=== PATIENT | female | born 1955 | race Caucasian/White ===

== ENCOUNTER 2021-01-25 08:42 | Outpatient (CLI) | payer BC, SELFPAY ==
--- NOTE | 2021-01-25 08:53 | FL_ITS ---
WS: [id number] ESOPHAGRAM WITH FLUOROSCOPY HISTORY: DYSPHAGIA, PHARYNGOESOPHAGEAL dysmotility. COMPARISON: None available. FLUOROSCOPY TIME: 1.4 minutes. Esophagus and swallowing function: Patient swallowed the barium mixture without difficulty. No strict ures or mucosal abnormalities are identified. Barium tablet was swallowed without difficulty. Gastroesophageal reflux: None. Hiatal hernia: Small reducible hiatal hernia noted several times during the examination. FL/FL barium swallow [id number] IMPRESSION: 1. No high grade esophageal strictures. 2. Small reducible hiatal hernia.
== END 2021-01-25 08:43 | disposition home or self-care (01) ==
LOC: RADWPI 08:47
PROVIDERS: Visit Provider Family Medicine
DX: R13.14 Dysphagia, pharyngoesophageal phase (principal); K44.9 Diaphragmatic hernia without obstruction or gangrene
CPT/HCPCS: 74220

== ENCOUNTER 2021-02-16 09:50 | Outpatient (CLI) | payer BC, SELFPAY ==
--- NOTE | 2021-02-16 09:55 | MM_ITS ---
WS: [id number] BILATERAL DIGITAL SCREENING MAMMOGRAPHY WITH CAD CLINICAL INFORMATION: SCREENING HISTORY: Screening mammogram. No current complaints. COMPARISON: TECHNIQUE: Bilateral CC and MLO views. FINDINGS: Right breast slightly smaller compared to the left unchanged. The breasts are composed of heterogeneous fibroglandular density tissue, which can limit the detectio n of small underlying mass lesions. No suspicious mass, asymmetry, calcifications, or architectural d istortion. No evidence of malignancy. Biopsy clip left breast. MM/[id number] IMPRESSION: BI-RADS: 2-Benign FOLLOW UP: 1 Year Follow-up Recommend return to annual screening mammography.
== END 2021-02-16 09:51 | disposition home or self-care (01) ==
LOC: RADSHAW 09:53
PROVIDERS: PCP Family Medicine; Visit Provider Family Medicine
DX: Z12.31 Encounter for screening mammogram for malignant neoplasm of breast (principal)
CPT/HCPCS: 77067

== ENCOUNTER 2023-02-17 12:27 | Outpatient (CLI) | payer OTHER, SELFPAY ==
--- NOTE | 2023-02-17 13:00 | MM_ITS ---
WS: [id number] VIEWS: MLO and CC views both breasts. 3D digital tomosynthesis is also included in this exam. Comparison made with prior exam of 03/28/2009, 02/06/2015, 02/18/2018, 02/20/2019, 02/16/2021,. Findings: There was no sign of mass, architectural distortion or suspicious calcification in either breast. Th ere are scattered areas of fibroglandular density MM/[place] [id number] Impression: BI-RADS: 2-Benign finding. FOLLOW-UP: 1 Year Follow-up This mammogram was also analyzed by the Computer Aided Detection System [employer]ating [employer].
== END 2023-02-17 12:28 | disposition home or self-care (01) ==
LOC: RAD 12:34 → MOBLMAM 12:59
PROVIDERS: PCP Family Medicine; Visit Provider Family Medicine
DX: Z12.31 Encounter for screening mammogram for malignant neoplasm of breast (principal)
CPT/HCPCS: 77063; 77067

== ENCOUNTER 2024-02-21 12:38 | Outpatient (CLI) | payer MEDICARE, SELFPAY ==
--- NOTE | 2024-02-21 12:44 | MM_ITS ---
WS: [id number] BILATERAL 3D TOMOSYNTHESIS DIGITAL SCREENING MAMMOGRAPHY WITH CAD CLINICAL INFORMATION: SCREENING HISTORY: Screening mammogram. No current complaints. COMPARISON: 2022 TECHNIQUE: Bilateral CC and MLO views. FINDINGS: The breasts are composed of heterogeneous fibroglandular density tissue, which can limit the detectio n of small underlying mass lesions. No suspicious mass, asymmetry, calcifications, or architectural d istortion. No evidence of malignancy. Biopsy clip LEFT breast. MM/[id number] IMPRESSION: BI-RADS: 2-Benign FOLLOW UP: 1 Year Follow-up Recommend return to annual screening mammography.
--- NOTE | 2024-02-21 12:44 | XR_ITS ---
WS: [id number] DEXA (DUAL ENERGY X-RAY ABSORPTIOMETRY) Bone mineral density was performed using a [employer] machine. HISTORY: POSTMENOPAUSAL COMPARISON: None available. Lumbar spine BMD (L1-L4): 1.134 g/cm2 T score: -0.4 Z score: 0.4 Total hip BMD: Left: 1.070 g/cm2. T score: 0.5 Z score: 1.2 Right: 1.056 g/cm2. T score: 0.4 Z score: 1.1 10 year probability of a major osteoporotic fracture is 6.4%. XR/XR DEXA axial skeleton* [id number] IMPRESSION: NORMAL BONE MINERAL DENSITY based upon the WHO classification for females.
== END 2024-02-21 12:39 | disposition home or self-care (01) ==
LOC: RAD 12:39
PROVIDERS: PCP Family Medicine; Visit Provider Family Medicine
DX: Z78.0 Asymptomatic menopausal state (principal); Z12.31 Encounter for screening mammogram for malignant neoplasm of breast; R92.333 Mammographic heterogeneous density, bilateral breasts; R92.323 Mammographic fibroglandular density, bilateral breasts
CPT/HCPCS: 77063; 77067; 77080

== ENCOUNTER 2024-09-25 23:17 | Observation (INO) | payer MEDICARE, SELFPAY ==
[2024-09-25 23:19] VITALS: BP 96/50; PULSE 72; RESP 18; TEMP 36.4; O2SAT 95; BMI 27.5
[2024-09-26] VITALS (9 sets, daily range): BP systolic 102–121; BP diastolic 57–88; PULSE 58–81; RESP 12–16; TEMP 36.4–36.9; O2SAT 88–99
[2024-09-26 01:01] LABS: Basophils % 0.3 %; Eosinophils % 0.3 %; Hematocrit 38.3 % (36-47); Lymphocytes % 7.6 %; Mean Corpuscular HGB Conc 30.8 g/dL (30-55); Mean Corpuscular Hemoglobin 24.4 pg (27-33); Mean Corpuscular Volume 79.1 fl (85-98); Mean Platelet Volume 8.9 fL (7.4-10.4); Monocytes # 0.6 10^3/uL (0.2-0.9); Monocytes % 4.3 %; Neutrophils # 11.96 10^3/uL (1.8-7.7); Neutrophils % 87.2 %; Nucleated Red Blood Cells % 0 %; Platelet Count 501 10^3/cmm (157-399); Red Blood Count 4.84 10^6/uL (3.85-5.65); White Blood Count 13.71 10^3/uL (3.29-11.43)
[2024-09-26 01:18] LABS: Alanine Aminotransferase < 5 U/L (0-33); Albumin Level 3.6 g/dL (3.5-5.2); Alkaline Phosphatase 154 U/L (35-105); Anion Gap 18.4 (5-19); Aspartate Amino Transferase 8 U/L (0-32); Blood Urea Nitrogen 13 mg/dL (8-23); C Reactive Protein 162.7 mg/L (0.0-4.9); Calcium 9.2 mg/dL (8.5-10.5); Carbon Dioxide 24 mmol/L (22-29); Chloride 98 mmol/L (98-107); Creatinine Clr Calc Pharmacy 43.8167; Globulin 4.7 g/dL (1.3-4.6); Glomerular Filtration Rate 37.5 mL/min (90-130); Glucose 148 mg/dL (65-115); Lipase 17 U/L (13-60); Osmolality Calculated 285 mOsm/kg (285-295); Potassium 4.4 mmol/L (3.5-5.1); Sodium 136 mmol/L (136-145); Total Bilirubin 0.3 mg/dL (0.15-1.2); Total Protein 8.3 g/dL (6.6-8.7)
[2024-09-26 01:20] LABS: Lactic Sepsis W/Reflex 0.9 mmol/L (0.5-2.2)
--- NOTE | 2024-09-26 01:29 | CTR_ITS ---
PROCEDURE INFORMATION: Exam: CT Abdomen And Pelvis Without Contrast Exam date and time: 09/26/2024 1:41 AM Age: 69 years old Clinical indication: Abdominal pain; Periumbilical TECHNIQUE: Imaging protocol: Computed tomography of the abdomen and pelvis without contrast. Radiation optimization: All CT scans at this facility use at least one of these dose optimization techniques: automated exposure control; mA and/or kV adjustment per patient size (includes targeted exams where dose is matched to clinical indication); or iterative reconstruction. COMPARISON: No relevant prior studies available. RADIATION DOSE METRICS: Total DLP (mGy-cm): 659.03 FINDINGS: Liver: 2.3 cm central hepatic cyst. Gallbladder and biliary ducts: Normal. No calcified stones. No ductal dilation. Pancreas: Normal. No ductal dilation. Spleen: Normal. No splenomegaly. Adrenal glands: Normal. No mass. Kidneys and ureters: Normal. No hydronephrosis. Stomach and bowel: Multiple mildly dilated loops of fluid-filled mid and distal small bowel are seen. There is transition to decompressed distal small bowel in the right lower quadrant. Circumferential wall thickening is seen in the distal ileum. Nonspecific mesenteric fat stranding in the right lower quadrant suggests an acute inflammatory process, but a drainable fluid collection is not identified. Appendix: Nonspecific appendiceal thickening is seen up to 10 mm. Intraperitoneal space: Trace ascites. Vasculature: Aortoiliac atherosclerotic disease is seen without evidence of aneurysm. Lymph nodes: Unremarkable. No enlarged lymph nodes. Urinary bladder: Unremarkable as visualized. Reproductive: Unremarkable as visualized. Bones/joints: Diffuse patchy hypoattenuation throughout the visualized vertebral segments could indicate an infiltrative marrow process. 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 Soft tissues: Unremarkable. CT/CT abdomen pelvis con [id number] IMPRESSION: 1. Distal small bowel obstruction. Exact etiology is uncertain, but a nonspecific inflammatory process appears to be present in the right lower quadrant including terminal ileal thickening. Inflammatory bowel disease is a consideration. The appendix appears somewhat thickened and mildly dilated measuring up to 10 mm. Although acute appendicitis is not entirely excluded, reactive thickening is favored. 2. Diffuse patchy hypoattenuation throughout the visualized vertebral segments could indicate an infiltrative marrow process. Correlation with appropriate laboratory studies is recommended.
--- NOTE | 2024-09-26 02:04 | ED_ITS ---
HPI - Abdominal Pain 2 General: Chief Complaint: Abdominal Pain Stated Complaint: n/v/d severe abd pain Time Seen by Provider: 09/26/24 02:03 History of Present Illness: 69-year-old female who presents emergenc y room with abdominal pain. She says she has been having worsening pain for at least a week now. Has become much worse today. She feels bloating in her abdomen. Pain is worse in her lower abdomen on exam is worse in the right lower quadrant. Vomiting started overnight. Vomiting and pain became much worse in the last 24 hours. However she has had nausea for almost a week now. No fevers. Only surgical history is a hysterectomy in the past. Related Data Allergies Allergy/AdvReac Type Severity Reaction Status Date / Time Penicillins Allergy ALGY-Rash Verified 09/25/24 23:26 Sulfa (Sulfonamide Allergy ADR-Gastrointestinal Verified 09/25/24 23:26 Antibiotics) Upset Review of Systems 2 Narrative: Constitutional symptoms: Negative except as documented in HPI. Skin symptoms: Negative except as documented in HPI. Eye symptoms: Negative except as documented in HPI. ENMT symptoms: Negative except as documented in HPI. Respiratory symptoms: Negative except as documented in HPI. Cardiovascular symptoms: Negative except as documented in HPI. Gastrointestinal symptoms: Negative except as documented in HPI. Genitourinary symptoms: Negative except as documented in HPI. Musculoskeletal symptoms: Negative except as documented in HPI. Neurologic symptoms: Negative except as documented in HPI. Psychiatric symptoms: Negative except as documented in HPI. Endocrine symptoms: Negative except as documented in HPI. Physical Exam 2 Narrative: EXAM NARRATIVE: General: Alert, no acute distress. Skin: Warm, dry. Head: Normocephalic, atraumatic. Neck: Supple, trachea midline. Eye: Extraocular movements are intact. Ears, nose, mouth and throat: Dry oral mucosa Cardiovascular: Regular, Normal peripheral perfusion. Respiratory: Lungs are clear to auscultation, respirations are non-labored, breath sounds are equal, Symmetrical chest wall expansion. Gastrointestinal: Soft, tenderness in the lower abdomen worse on the right and central abdomen than the left. No distention. No guarding., Non distended Musculoskeletal: Normal ROM, no deformity. Neurological: Alert and oriented, No focal neurological deficit observed. Psychiatric: Cooperative, appropriate mood & affect. Course 2 Vital Signs: Vital signs: Vital Signs Temperature 97.5 F L 09/25/24 23:19 Pulse Rate 72 09/25/24 23:19 Respiratory Rate 18 09/25/24 23:19 Blood Pressure 96/50 09/25/24 23:19 Pulse Oximetry 95 09/25/24 23:19 MDM - Abdominal Pain Medical Decision Making Medical decision making: Differential diagnosis for this patient with right lower quadrant abdominal pain including but not limited to and based on the above HPI, review of systems and physical exam: Ureterolithiasis. Urinary tract infection. Appendicitis. colitis. small bowel obstruction. Crohn's flare. Pancreatitis. Cholelithiasis or cholecystitis. Hepatitis. Diverticulitis. Constipation. ovarian cyst. ovarian torsion Workup: Orders were placed to evaluate differential diagnosis based on the above differential, HPI and exam: Lab Review: Laboratory results were reviewed and interpreted by myself the emergency room physician. Leukocytosis with a white count 13.7. BUN and creatinine are slightly elevated at 13 and 1.4. Lipase is negative. Liver enzymes are normal. CT of the abdomen and pelvis: Distal small bowel obstruction. Unknown etiology. Does seem to be some sort of inflammatory process in the right lower quadrant and also some increased size of the appendix. Cannot rule out acute appendicitis. This was reviewed and interpreted by myself the emergency room physician. I also reviewed the radiology report. I reviewed the patient's medical record Reexamination: Patient continues to have pain in her right lower quadrant. Otherwise she has been stable. No altered mental status. She has had no vomiting since has been here. Consultation: I spoke with Dr. Linder who is on-call for general surgery. He agrees to admission. We are placing an NG tube for small bowel obstruction. I am also placing her on antibiotics to cover for intra-abdominal infection including appendicitis. As I cannot rule this out. Possibly she could have an ileus or obstruction secondary to appendicitis or if this could just be a secondary inflammatory process as stated by the radiologist. Assessment and plan: Small bowel obstruction Possible appendicitis Dehydration ?Normal saline bolus, IV Zofran, IV morphine, IV Cipro and Flagyl (the patient is allergic to penicillins) -I discussed the patient with the hospitalist on-call who is admitting the patient. - Discussed findings and plan with patient. Answered any questions. - All laboratory values were reviewed and interpreted personally by myself, the ER physician - All imaging was reviewed and interpreted personally by myself, the ER physician. - Evaluation and treatment of this problem were appropriate in the emergency setting Lab Data 09/26/24 00:56 09/26/24 00:56 Labs/Radiology: Radiology Impressions Abdomen/Pelvis CT 09/26/24 01:29 IMPRESSION: 1. Distal small bowel obstruction. Exact etiology is uncertain, but a nonspecific inflammatory process appears to be present in the right lower quadrant including terminal ileal thickening. Inflammatory bowel disease is a consideration. The appendix appears somewhat thickened and mildly dilated measuring up to 10 mm. Although acute appendicitis is not entirely excluded, reactive thickening is favored. 2. Diffuse patchy hypoattenuation throughout the visualized vertebral segments could indicate an infiltrative marrow process. Correlation with appropriate laboratory studies is recommended. ADDENDUM: 09/26/24 [id number] THIS REPORT CONTAINS FINDINGS THAT MAY BE CRITICAL TO PATIENT CARE. The findings were verbally communicated via telephone conference at 2:42 AM PRIMING MIXTURE CARRIER on 09/26/2024 with HUY GALEANO. The findings were acknowledged and understood. Laboratory Results WBC 13.71 10^3/uL (3.29-11.43) H 09/26/24 00:56 RBC 4.84 10^6/uL (3.85-5.65) 09/26/24 00:56 Hgb 11.80 g/dL (11.27-16.99) 09/26/24 00:56 Hct 38.3 % (36-47) 09/26/24 00:56 MCV 79.1 fl (85-98) L 09/26/24 00:56 MCH 24.4 pg (27-33) L 09/26/24 00:56 MCHC 30.8 g/dL (30-55) 09/26/24 00:56 RDW 15.0 % (12.1-15.1) 09/26/24 00:56 Plt Count 501 10^3/cmm (157-399) H 09/26/24 00:56 MPV 8.9 fL (7.4-10.4) 09/26/24 00:56 Neut % (Auto) 87.2 % 09/26/24 00:56 Lymph % (Auto) 7.6 % 09/26/24 00:56 [place] % (Auto) 4.3 % 09/26/24 00:56 Eos % (Auto) 0.3 % 09/26/24 00:56 Baso % (Auto) 0.3 % 09/26/24 00:56 Neut # (Auto) 11.96 10^3/uL (1.8-7.7) H 09/26/24 00:56 Lymph # (Auto) 1.0 10^3/uL (0.8-4.8) 09/26/24 00:56 [place] # (Auto) 0.6 10^3/uL (0.2-0.9) 09/26/24 00:56 Eos # (Auto) 0.0 10^3/uL (0.0-0.8) 09/26/24 00:56 Baso # (Auto) 0.0 10^3/uL (0.0-0.1) 09/26/24 00:56 Nucleated RBC % (auto) 0 % 09/26/24 00:56 Nucleated RBCs # 0.0 /100WBC 09/26/24 00:56 Sodium 136 mmol/L (136-145) 09/26/24 00:56 Potassium 4.4 mmol/L (3.5-5.1) 09/26/24 00:56 Chloride 98 mmol/L (98-107) 09/26/24 00:56 Carbon Dioxide 24 mmol/L (22-29) 09/26/24 00:56 Anion Gap 18.4 (5-19) 09/26/24 00:56 BUN 13 mg/dL (8-23) 09/26/24 00:56 Creatinine 1.4 mg/dL (0.5-0.9) H 09/26/24 00:56 GFR Calculation 37.5 mL/min (90-130) L 09/26/24 00:56 Glucose 148 mg/dL (65-115) H 09/26/24 00:56 Calculated Osmolality 285 mOsm/kg (285-295) 09/26/24 00:56 Lactic Acid 0.9 mmol/L (0.5-2.2) 09/26/24 00:56 Calcium 9.2 mg/dL (8.5-10.5) 09/26/24 00:56 Total Bilirubin 0.3 mg/dL (0.15-1.2) 09/26/24 00:56 AST 8 U/L (0-32) 09/26/24 00:56 ALT < 5 U/L (0-33) 09/26/24 00:56 Alkaline Phosphatase 154 U/L (35-105) H 09/26/24 00:56 C-Reactive Protein 162.7 mg/L (0.0-4.9) H 09/26/24 00:56 Total Protein 8.3 g/dL (6.6-8.7) 09/26/24 00:56 Albumin 3.6 g/dL (3.5-5.2) 09/26/24 00:56 Globulin 4.7 g/dL (1.3-4.6) H 09/26/24 00:56 Lipase 17 U/L (13-60) 09/26/24 00:56 All radiology interpretation(s) finalized by discharge Discharge Plan Discharge Patient Disposition: Admitted As Inpatient Clinical Impression: Small bowel obstruction, Dehydration Condition: Stable Coding Level of Care Code ED [employer]eng[employer]ving [employer]inter for [employer]
[2024-09-26] MEDS: sodium chloride 0.9% 1,000 ML 999 ML IV (02:50)
[2024-09-26] MEDS: ondansetron 2 mg/ML SDV 2 mL 4 MG IVP (02:50)
[2024-09-26] MEDS: morphine 4 mg/mL SDV 1 mL IVP (02:51)
[2024-09-26] MEDS: metroNIDAZOLE IV 500 MG/100 ML PREMIX 100 MG IV (03:05)
[2024-09-26] MEDS: ciprofloxacin 400 MG/200 ML PREMIX 200 MG IV (03:05)
--- NOTE | 2024-09-26 04:24 | XRR_ITS ---
PROCEDURE INFORMATION: Exam: XR Chest Exam date and time: 09/26/2024 4:23 AM Age: 69 years old Clinical indication: Device placement; Ng tube; Additional info: Ng tube placement TECHNIQUE: Imaging protocol: Radiologic exam of the chest. Views: 1 view. COMPARISON: CT abdomen pelvis con [id number] 09/26/2024 1:41 AM FINDINGS: Limitations: Exam is centered on the epigastric region. Tubes, catheters and devices: Esophagogastric tube is present with the tip in the stomach. Lungs: Unremarkable. No consolidation. Pleural spaces: Unremarkable. No pleural effusion. No pneumothorax. Heart/Mediastinum: Unremarkable. No cardiomegaly. Bones/joints: Unremarkable. XR/XR chest 1V portable [id number] IMPRESSION: Esophagogastric tube is present with the tip in the stomach.
[2024-09-26] MEDS: HYDROMORPHONE HCL 0.5 MG/0.5 ML INJ 1 MG IVP (04:48)
--- NOTE | 2024-09-26 08:19 | PM.HP ---
Providers/Chief Complaint Admitting Physician: Qasim Linder MD Primary Care Provider: Kim Kearns MD Chief Complaint: n/v/d severe abd pain History of Present Illness May Johnson is a 69 year old female who presented with SBO. CT scan demonstrated terminal ileitis. Patient has a family history of colon cancer and inflammatory bowel disease in the mother. She reports that she has had 2 episodes similar to this this winter with tenderness in the lower abdomen and nausea and vomiting. Last colonoscopy about 5 years ago was unremarkable. She does report mucousy bowel movements, no hematochezia. Currently responding well to bowel decompression. Passing gas and had a bowel movement overnight. Medications/Allergies Home Medications ?Medication ?Instructions ?Recorded ?Confirmed ?Last Taken ?Type bupropion HCl 150 mg tablet,12 hr 150 mg PO QAM 09/26/24 09/26/24 09/25/24 History sustained-release escitalopram oxalate 20 mg tablet 20 mg PO DAILY 09/26/24 09/26/24 09/25/24 History levothyroxine 75 mcg tablet 75 mcg PO DAILY 09/26/24 09/26/24 09/25/24 History omeprazole 40 mg capsule,delayed 40 mg PO DAILY 09/26/24 09/26/24 09/25/24 History release Allergies Allergy/AdvReac Type Severity Reaction Status Date / Time Penicillins Allergy ALGY-Rash Verified 09/25/24 23:26 Sulfa (Sulfonamide Allergy ADR-Gastrointestinal Verified 09/25/24 23:26 Antibiotics) Upset Vitals/I&O/Wt Last Vital Signs Temp 97.6 F 09/26/24 08:09 Pulse 63 09/26/24 08:09 Resp 16 09/26/24 08:09 BP 115/64 09/26/24 08:09 Pulse Ox 99 09/26/24 08:09 O2 Del Method Nasal Cannula 09/26/24 08:09 09/25/24 09/26/24 09/26/24 22:59 06:59 14:59 Intake Total 1300 / 1300 Balance 1300 / 1300 Weight last 48 hrs Weight 181 lb Physical Exam Narrative: Chest: Unlabored breathing room air. No lymphadenopathy. Heart: Regular rate and rhythm. Abdomen: Soft, mildly tender lower abdomen, mildly distended. No masses or lymphadenopathy. Data 09/26/24 00:56 09/26/24 00:56 A&P Assessment and plan (1) Small bowel obstruction: (2) Terminal ileitis: Plan 69-year-old female who presents with SBO secondary to terminal ileitis. Responding well to bowel decompression. Continue NG tube until tomorrow. Will refer to GI in [place] for workup of terminal ileitis. Suspicious for Crohn's disease. PDMP PDMP Reviewed: Not Reviewed Attestations Medical Necessity Statement*: NG tube decompression, IV fluids, IV pain meds Coding Level of Care Code 03244 Diagnoses Small bowel obstruction K56.609 Terminal ileitis K50.00 Time Spent (min) 30
[2024-09-26] MEDS: sodium chloride 0.9% 1,000 ML 75 ML IV ×2 (10:33→22:36)
[2024-09-26 15:13] LABS: Bilirubin Urine Negative (Negative); Blood Urine Negative (Negative); Glucose Urine UA Negative (Normal); Ketones Urine Negative (Negative); Leukocyte Esterase Urine Negative (Negative); Nitrate Urine Negative (Negative); Protein Urine 1+ (Negative); Specific Gravity, Urine 1.021 (1.005-1.030); Urine Appearance Clear (CLEAR); Urine Color Yellow (Yellow); pH Urine 5.5 (5-7)
[2024-09-26 15:36] LABS: Bacteria Urine TRACE /hpf; Hyaline Casts Urine 0-4 /lpf; Mucus Urine TRACE /hpf; Squamous Epithelial Cell Urine 0-4 /hpf (0-5); UA Manual Slide Review YES; UA Slide Review UA Slide Review Perf; WBC Urine 0-4 /hpf (0-5)
[2024-09-27] VITALS: BP 96/55; PULSE 66; RESP 15; TEMP 36.9; O2SAT 90
[2024-09-27 04:00] VITALS: BP 95/58; PULSE 72; RESP 17; TEMP 37.2; O2SAT 90
[2024-09-27 06:00] VITALS: BMI 27.8
[2024-09-27 08:08] VITALS: BP 121/73; PULSE 78; RESP 16; TEMP 37; O2SAT 92
--- NOTE | 2024-09-27 10:21 | PC.SOCIAL ---
IMM Update pg 2 of IMM Updated and reviewed w/ patient. Copy provided and copy dated, initialed and placed in chart.
[2024-09-27 11:54] VITALS: BP 110/63; PULSE 69; RESP 17; TEMP 36.8; O2SAT 97
[2024-09-27 12:51] VITALS: BP 110/63; PULSE 69; RESP 17; TEMP 36.8; O2SAT 97
--- NOTE | 2024-10-01 10:25 | P.PN_ITS ---
Subjective 2 Subjective: Tolerating PO Passing gas benign abdomen Vitals/I&O/Wt Last Vital Signs Temp 98.3 F 09/27/24 12:51 Pulse 69 09/27/24 12:51 Resp 17 09/27/24 12:51 BP 110/63 09/27/24 12:51 Pulse Ox 97 09/27/24 12:51 O2 Del Method Room Air 09/27/24 11:54 Physical Exam 2 Narrative: Chest: Unlabored breathing room air. No lymphadenopathy. Heart: Regular rate and rhythm. Abdomen: Soft, nontender, nondistended. No masses or lymphadenopathy. Data 09/26/24 00:56 09/26/24 00:56 A&P Assessment and plan (1) Terminal ileitis: 69-year-old female who presented with terminal ileitis. Tolerating p.o. Having bowel function. Will discharge she can follow-up with GI in [place]. Plan 69-year-old female who presented with terminal ileitis. Tolerating p.o. Having bowel function. Will discharge she can follow-up with GI in [place]. This note corresponds to the progress note from 09/27/2024. PDMP PDMP Reviewed: Not Reviewed Attestations 2 Medical Necessity Statement*: IV fluids Coding Level of Care Code Acute Code for Chg Fwd Diagnoses Terminal ileitis K50.00
== END 2024-09-27 11:00 | disposition home or self-care (01) ==
LOC: ER 09-26 04:20 → MEDSURG 09-26 06:23
PROVIDERS: Admitting Provider Student in an Organized Health Care Education/Training Program; Emergency Provider Emergency Medicine; PCP Family Medicine; Visit Provider Student in an Organized Health Care Education/Training Program
DX: K50.012 Crohn's disease of small intestine with intestinal obstruction (principal); E86.0 Dehydration; Z88.2 Allergy status to sulfonamides; Z88.0 Allergy status to penicillin; Z80.0 Family history of malignant neoplasm of digestive organs; Z83.79 Family history of other diseases of the digestive system; Z79.899 Other long term (current) drug therapy; Z79.890 Hormone replacement therapy
CPT/HCPCS: 36415; 71045; 74176; 80053; 81001; 83605; 83690; 85025; 86140; 96365; 96367; 96375; 99285; G0378; J0744; J1171; J2270; J2405; J3490; J7030

== ENCOUNTER 2024-09-30 21:35 | Emergency (ER) | payer MEDICARE, SELFPAY ==
[2024-09-30 22:36] LABS: Basophils % 0.3 %; Eosinophils # 0.1 10^3/uL (0.0-0.8); Eosinophils % 1.2 %; Hematocrit 34.7 % (36-47); Lymphocytes # 1.5 10^3/uL (0.8-4.8); Lymphocytes % 14.1 %; Mean Corpuscular HGB Conc 30.5 g/dL (30-55); Mean Corpuscular Hemoglobin 24.5 pg (27-33); Mean Corpuscular Volume 80.1 fl (85-98); Mean Platelet Volume 8.9 fL (7.4-10.4); Monocytes # 0.7 10^3/uL (0.2-0.9); Monocytes % 6.8 %; Neutrophils # 8.05 10^3/uL (1.8-7.7); Neutrophils % 77.3 %; Nucleated Red Blood Cells % 0 %; Platelet Count 483 10^3/cmm (157-399); Red Blood Count 4.33 10^6/uL (3.85-5.65); Red Cell Distribution Width 15.1 % (12.1-15.1); White Blood Count 10.42 10^3/uL (3.29-11.43)
[2024-09-30 22:53] LABS: Alanine Aminotransferase < 5 U/L (0-33); Albumin Level 3.4 g/dL (3.5-5.2); Alkaline Phosphatase 112 U/L (35-105); Anion Gap 16.6 (5-19); Aspartate Amino Transferase 7 U/L (0-32); Blood Urea Nitrogen 8 mg/dL (8-23); Carbon Dioxide 26 mmol/L (22-29); Chloride 101 mmol/L (98-107); Globulin 4.1 g/dL (1.3-4.6); Glomerular Filtration Rate 44.8 mL/min (90-130); Glucose 114 mg/dL (65-115); Lipase 16 U/L (13-60); Osmolality Calculated 289 mOsm/kg (285-295); Potassium 3.6 mmol/L (3.5-5.1); Sodium 140 mmol/L (136-145); Total Bilirubin 0.3 mg/dL (0.15-1.2); Total Protein 7.5 g/dL (6.6-8.7)
[2024-09-30 23:12] VITALS: BP 89/52; PULSE 66; RESP 14; TEMP 36.8; O2SAT 96
[2024-10-01 00:54] LABS: Bilirubin Urine Negative (Negative); Blood Urine Trace (Negative); Glucose Urine UA Negative (Normal); Ketones Urine Negative (Negative); Leukocyte Esterase Urine Negative (Negative); Nitrate Urine Negative (Negative); Protein Urine 1+ (Negative); Specific Gravity, Urine 1.015 (1.005-1.030); Urine Appearance Clear (CLEAR); Urine Color Yellow (Yellow); Urobilinogen Urine 0.2 mg/dL (Negative); pH Urine 5.5 (5-7)
--- NOTE | 2024-10-01 01:07 | XRR_ITS ---
PROCEDURE INFORMATION: Exam: XR Abdomen Exam date and time: 10/01/2024 1:10 AM Age: 69 years old Clinical indication: Abdominal pain; Localized; C/O lower abd pain with vomiting and diarrhea. Recent history of terminal ileitis. ; Additional info: Nausea vomiting history of bowel obstruction TECHNIQUE: Imaging protocol: Radiologic exam of the abdomen. Views: Frontal supine view of the abdomen. 1 View. COMPARISON: CT abdomen pelvis con [id number] 09/26/2024 1:41 AM FINDINGS: Gastrointestinal tract: Normal. No bowel dilation. Bones/joints: Unremarkable. XR/XR abdomen 1V* [id number] IMPRESSION: No acute findings.
--- NOTE | 2024-10-01 01:10 | W.ED.ABDPA2 ---
HPI - Abdominal Pain General: Chief Complaint: Abdominal Pain Stated Complaint: Bowel Ob last week, n/v/d, fever Time Seen by Provider: 10/01/24 00:46 History of Present Illness: Patient presents to the ER with nausea vomiting abdominal pain. She said this been going on for about the last 24 hours. She has a fullness in the epigastric region. She states last week she was diagnosed with bowel obstruction has an NG tube and is hospitalized and then discharged feeling better. But now she is went back downhill. She not able to keep anything down. She was not sent home with any antinausea medicine. Related Data Home Medications ?Medication ?Instructions ?Recorded ?Confirmed bupropion HCl 150 mg tablet,12 hr 150 mg PO QAM 09/26/24 09/26/24 sustained-release escitalopram oxalate 20 mg tablet 20 mg PO DAILY 09/26/24 09/26/24 levothyroxine 75 mcg tablet 75 mcg PO DAILY 09/26/24 09/26/24 omeprazole 40 mg capsule,delayed 40 mg PO DAILY 09/26/24 09/26/24 release Previous Rx's ?Medication ?Instructions ?Recorded ondansetron HCl 4 mg tablet 4 mg PO Q8H PRN nausea and 10/01/24 vomiting #14 tabs Allergies Allergy/AdvReac Type Severity Reaction Status Date / Time Penicillins Allergy ALGY-Rash Verified 09/30/24 23:18 Sulfa (Sulfonamide Allergy ADR-Gastrointestinal Verified 09/30/24 23:18 Antibiotics) Upset Review of Systems General: Reports: 10 or more systems reviewed and unremarkable except in HPI and below Physical Exam Const: COMMON NORMALS: no acute distress, average body habitus, patient oriented x3, no limitations, healthy appearing, alert and well nourished HENMT: COMMON NORMALS: normocephalic, atraumatic, hearing grossly normal bilaterally, external ears normal, Normal external nose present, moist oral mucous membranes and oropharynx normal HEAD & SCALP: normocephalic and atraumatic NOSE: Normal external nose present EXTERNAL EAR: Yes external ears normal Neck/C-Spine: COMMON NORMALS: no JVD Chest: COMMONS NORMALS: normal inspection of the chest and normal palpation of entire chest wall Resp: COMMON NORMALS: normal respiratory effort, No retractions, No use of accessory muscles and clear to auscultation bilaterally AUSCULTATION: clear to auscultation bilaterally Cardio: COMMON NORMALS: no JVD, regular rate, regular rhythm, S1 normal heart sound present, S2 normal heart sound present, No gallops present (Cardio), No clicks present (Cardio), No murmurs present (Cardio) and No rub (Cardio) RATE: regular rate RHYTHM: regular rhythm HEART SOUNDS: S1 normal heart sound present and S2 normal heart sound present GI: COMMON NORMALS: Normal to inspection, nondistended, normoactive bowel sounds present, Soft to palpation, No hepatosplenomegaly present and no masses; negative for non-tender (Diffusely tender) PALPATION: Yes Soft to palpation and Yes No hepatosplenomegaly present Neuro: COMMON NORMALS: patient oriented x3 SENSORIUM/ORIENTATION: Yes alert Course Vital Signs: Vital signs: Vital Signs Temperature 98.2 F 09/30/24 23:12 Pulse Rate 59 L 10/01/24 01:30 Respiratory Rate 14 10/01/24 01:30 Blood Pressure 115/58 10/01/24 01:30 Pulse Oximetry 96 10/01/24 01:30 Oxygen Delivery Me thod Room Air 10/01/24 01:30 MDM - Abdominal Pain Medical Decision Making Lab work was obtained as well as abdominal x-ray all which was essentially unremarkable. Patient was given Zofran here in ER as well as to go home and a prescription. Patient be referred back to her PCP. Lab Data 09/30/24 22:20 09/30/24 22:20 Labs/Radiology: Radiology Impressions Abdomen X-Ray 10/01/24 01:07 IMPRESSION: No acute findings. Laboratory Results WBC 10.42 10^3/uL (3.29-11.43) 09/30/24 22:20 RBC 4.33 10^6/uL (3.85-5.65) 09/30/24 22:20 Hgb 10.60 g/dL (11.27-16.99) L 09/30/24 22:20 Hct 34.7 % (36-47) L 09/30/24 22:20 MCV 80.1 fl (85-98) L 09/30/24 22:20 MCH 24.5 pg (27-33) L 09/30/24 22:20 MCHC 30.5 g/dL (30-55) 09/30/24 22:20 RDW 15.1 % (12.1-15.1) 09/30/24 22:20 Plt Count 483 10^3/cmm (157-399) H 09/30/24 22:20 MPV 8.9 fL (7.4-10.4) 09/30/24 22:20 Neut % (Auto) 77.3 % 09/30/24 22:20 Lymph % (Auto) 14.1 % 09/30/24 22:20 [place] % (Auto) 6.8 % 09/30/24 22:20 Eos % (Auto) 1.2 % 09/30/24 22:20 Baso % (Auto) 0.3 % 09/30/24 22:20 Neut # (Auto) 8.05 10^3/uL (1.8-7.7) H 09/30/24 22:20 Lymph # (Auto) 1.5 10^3/uL (0.8-4.8) 09/30/24 22:20 [place] # (Auto) 0.7 10^3/uL (0.2-0.9) 09/30/24 22:20 Eos # (Auto) 0.1 10^3/uL (0.0-0.8) 09/30/24 22:20 Baso # (Auto) 0.0 10^3/uL (0.0-0.1) 09/30/24 22:20 Nucleated RBC % (auto) 0 % 09/30/24 22:20 Nucleated RBCs # 0.0 /100WBC 09/30/24 22:20 Sodium 140 mmol/L (136-145) 09/30/24 22:20 Potassium 3.6 mmol/L (3.5-5.1) 09/30/24 22:20 Chloride 101 mmol/L (98-107) 09/30/24 22:20 Carbon Dioxide 26 mmol/L (22-29) 09/30/24 22:20 Anion Gap 16.6 (5-19) 09/30/24 22:20 BUN 8 mg/dL (8-23) 09/30/24 22:20 Creatinine 1.2 mg/dL (0.5-0.9) H 09/30/24 22:20 GFR Calculation 44.8 mL/min (90-130) L 09/30/24 22:20 Glucose 114 mg/dL (65-115) 09/30/24 22:20 Calculated Osmolality 289 mOsm/kg (285-295) 09/30/24 22:20 Calcium 9.0 mg/dL (8.5-10.5) 09/30/24 22:20 Total Bilirubin 0.3 mg/dL (0.15-1.2) 09/30/24 22:20 AST 7 U/L (0-32) 09/30/24 22:20 ALT < 5 U/L (0-33) 09/30/24 22:20 Alkaline Phosphatase 112 U/L (35-105) H 09/30/24 22:20 Total Protein 7.5 g/dL (6.6-8.7) 09/30/24 22:20 Albumin 3.4 g/dL (3.5-5.2) L 09/30/24 22:20 Globulin 4.1 g/dL (1.3-4.6) 09/30/24 22:20 Lipase 16 U/L (13-60) 09/30/24 22:20 Urine Color Yellow (Yellow) 10/01/24 00:48 Urine Appearance Clear (CLEAR) 10/01/24 00:48 Urine pH 5.5 (5-7) 10/01/24 00:48 Ur Specific [place] 1.015 (1.005-1.030) 10/01/24 00:48 Urine Protein 1+ (Negative) A 10/01/24 00:48 Urine Glucose (UA) Negative (Normal) 10/01/24 00:48 Urine Ketones Negative (Negative) 10/01/24 00:48 Urine Blood Trace (Negative) A 10/01/24 00:48 Urine Nitrate Negative (Negative) 10/01/24 00:48 Urine Bilirubin Negative (Negative) 10/01/24 00:48 Urine Urobilinogen 0.2 mg/dL (Negative) 10/01/24 00:48 Ur Leukocyte Esterase Negative (Negative) 10/01/24 00:48 Urine RBC 0-4 /hpf (0-2) H 10/01/24 00:48 Urine WBC 5-10 /hpf (0-5) H 10/01/24 00:48 Ur Squamous Epith Cells 5-10 /hpf (0-5) H 10/01/24 00:48 Amorphous Sediment Not Reportable 10/01/24 00:48 Urine Bacteria None /hpf (NONE) 10/01/24 00:48 Urine Mucus 2+ /hpf 10/01/24 00:48 All radiology interpretation(s) finalized by discharge Discharge Plan Discharge Patient Disposition: Home Clinical Impression: Nausea & vomiting Qualifiers: Vomiting type: unspecified Qualified Code(s): R11.2 - Nausea with vomiting, unspecified Condition: Stable Prescriptions: New ondansetron HCl 4 mg tablet 4 mg PO Q8H PRN (Reason: nausea and vomiting) Qty: 14 0RF No Action bupropion HCl 150 mg tablet sustained-release 12 hr 150 mg PO QAM omeprazole 40 mg capsule,delayed release(DR/EC) 40 mg PO DAILY levothyroxine 75 mcg tablet 75 mcg PO DAILY escitalopram oxalate 20 mg tablet 20 mg PO DAILY Discharge Orders: Discharge ED (Routine); Ordered 10/01/24 Ordered By: Andrew Zhou Referrals: Kim Kearns MD [Primary Care Provider] - 1 week Patient Instructions: Acute Nausea and Vomiting (ED) Activity Restrictions/Additional Instructions: Activity restrictions/additional instructions: Thank you for choosing [facility] for your healthcare needs today. Please realize that you were seen in the emergency department and that we are providing you with an emergency medical screening exam and this may not be a complete and all exclusive of all testing and/or medical workup we may need to determine your element or severity of your illness. It is very important that you follow-up as instructed with your primary care provider or specialist for the additional evaluation and to discuss your medical treatment plan. You may return to the emergency department should you have concerns or if your condition changes or worsens in any way. Print Language: Chinese Coding Level of Care Code ED Geophysical Party Chief for Courtney Brooks
[2024-10-01 01:14] VITALS: BP 109/55; PULSE 66; RESP 16; O2SAT 95
[2024-10-01 01:30] VITALS: BP 115/58; PULSE 59; RESP 14; O2SAT 96
[2024-10-01 01:35] LABS: Add Urine Microscopic? YES; RBC Urine 0-4 /hpf (0-2)
[2024-10-01 01:36] LABS: Add Urine Culture? No; Mucus Urine 2+ /hpf
[2024-10-01 02:00] VITALS: BP 98/38; PULSE 61; RESP 17; O2SAT 97
[2024-10-01 02:19] VITALS: BP 108/53; PULSE 59; RESP 16; O2SAT 97
== END 2024-10-01 02:19 | disposition home or self-care (01) ==
PROVIDERS: Emergency Medicine; Emergency Provider Emergency Medicine; PCP Family Medicine
DX: R11.2 Nausea with vomiting, unspecified (principal)
CPT/HCPCS: 36415; 74018; 80053; 81001; 83690; 85025; 99284

== ENCOUNTER → 2024-10-03 11:28 | Outpatient (BNVA) | payer MEDICARE, SELFPAY | PROVIDERS: PCP Family Medicine; Visit Provider Student in an Organized Health Care Education/Training Program | DX: K50.00 Crohn's disease of small intestine without complications (principal) | CPT/HCPCS: 99213 ==

== ENCOUNTER 2025-07-17 11:28 | Outpatient (CLI) | payer MEDICARE, SELFPAY ==
--- NOTE | 2025-07-17 11:35 | MM_ITS ---
WS: [id number] BILATERAL SCREENING DIGITAL TOMOSYNTHESIS MAMMOGRAM WITH CAD HISTORY: SCREENING COMPARISON: 02/21/2024, 02/17/2023 Bilateral CC and MLO views with tomosynthesis and synthetic mammography submitted. Computer aided detection analyzed. Breast composition: There are scattered areas of fibroglandular density. No suspicious masses, microcalcifications or architectural distortion. Biopsy clip 3:00 LEFT breast. MM/MM scr BI tomosynthesis [id number] IMPRESSION: BI-RADS: 2 - Benign. FOLLOW UP: 1 Year Follow-up
== END 2025-07-17 11:29 | disposition home or self-care (01) ==
PROVIDERS: PCP Family Medicine; Visit Provider Family Medicine
DX: Z12.31 Encounter for screening mammogram for malignant neoplasm of breast (principal); R92.323 Mammographic fibroglandular density, bilateral breasts; Z96.89 Presence of other specified functional implants
CPT/HCPCS: 77063; 77067